=== PATIENT | male | born 1955 | race American Indian/Alaskan Native ===

== ENCOUNTER 2016-09-13 14:24 | Emergency (ER) | payer OTHER ==
[2016-09-13 14:25] VITALS: BMI 26.4
--- NOTE | 2016-09-13 15:21 | C.PDOC ---
History Of Present Illness 61 year old patient is brought to the ED by ambulance after he was found unconscious. Patient was given 16 mg of Narcan in the field and patient regained consciousness. Patient admitted to using heroin prior to ambulance arrival. Patient denies fever, chills, nausea, vomiting, numbness, weakness, suicidal ideation, homicidal ideation, or any other complaints at this time. Patient requests to be discharged. Time Seen by Provider: 09/13/16 14:59 Chief Complaint (Nursing): Substance Abuse History Per: Patient, EMS History/Exam Limitations: clinical condition Onset/Duration Of Symptoms: Other Current Symptoms Are (Timing): Still Present Suicide/Self Injury Attempted (Context): None Modifying Factor(s): Other (Heroin) Severity: None Pain Scale Rating Of: 0 Recent travel outside of the [place]: No Additional History Per: EMS Past Medical History Reviewed: Historical Data, Nursing Documentation, Vital Signs Vital Signs: Last Vital Signs Temp 97.8 F 09/13/16 14:50 Pulse 96 H 09/13/16 15:26 Resp 18 09/13/16 15:26 BP 118/72 09/13/16 14:50 Pulse Ox 97 09/13/16 15:26 - Medical History PMH: Bronchitis, HTN Family History: States: Unknown Family Hx - Social History Hx Alcohol Use: Yes Hx Substance Use: No - Immunization History Hx Tetanus Toxoid Vaccination: No Hx Influenza Vaccination: No Hx Pneumococcal Vaccination: No Review Of Systems Except As Marked, All Systems Reviewed And Found Negative. Constitutional: Negative for: Fever, Chills Gastrointestinal: Negative for: Nausea, Vomiting Neurological: Negative for: Weakness, Numbness Psych: Negative for: Suicidal ideation Physical Exam - Physical Exam Appears: Non-toxic, No Acute Distress Skin: Warm, Dry Head: Atraumatic, Normacephalic Teeth: Other (edentulous) Neck: Normal ROM, Supple Chest: Symmetrical Cardiovascular: Rhythm Regular Respiratory: No Accessory Muscle Use Back: Normal Inspection Extremity: Normal ROM Neurological/Psych: Oriented x3, Normal Motor, Normal Sensation Gait: Steady Disposition - Disposition Disposition: HOME/ ROUTINE Disposition Time: 15:30 Condition: FAIR Additional Instructions: stop using drugs. Follow up with the medical doctor within 1-2 days, Return if worsened. Instructions: Narcotic Abuse (ED) - Clinical Impression Clinical Impression: Drug abuse - PA / [employer] / Resident Statement MD/DO has reviewed & agrees with the documentation as recorded. - Scribe Statement The provider has reviewed the documentation as recorded by the Scribe Le Escobar All medical record entries made by the Scribe were at my direction and personally dictated by me. I have reviewed the chart and agree that the record accurately reflects my personal performance of the history, physical exam, medical decision making, and the department course for this patient. I have also personally directed, reviewed, and agree with the discharge instructions and disposition.
[2016-09-13 15:23] VITALS: BP 118/72; RESP 18; TEMP 97.8; O2SAT 97
[2016-09-13 15:26] VITALS: PULSE 96
== END 2016-09-13 15:45 | disposition home or self-care (01) ==
LOC: C.ER 14:24
DX: F11.10 Opioid abuse, uncomplicated (principal)